=== PATIENT | female | born 1960 | race Asian ===

== ENCOUNTER 2018-06-02 02:40 | Emergency (ER) | payer OTHER ==
[~2018-06-02] VITALS: Ht 154.9 cm; Wt 56.2 kg
[2018-06-02 02:42] VITALS: Ht 154.9 cm; Wt 56.2 kg
[2018-06-02 04:08] LABS: BASOPHIL % 0.6 % (0-2); CALCIUM 9.2 mg/dL (8.5-10.1); CARBON DIOXIDE 26.3 mmol/L (21-32); CHLORIDE SERUM 106 mmol/L (98-107); CREATININE SERUM 0.7 mg/dL (0.6-1.0); GFR1 > 60 mL/min; GLUCOSE SERUM 99 mg/dL (74-106); PLATELET COUNT 128 x10^3mcL (130-400); POTASSIUM SERUM 3.4 mmol/L (3.5-5.1); RED CELL DISTRIBUTION WIDTH 13.8 % (11.5-14.5); SODIUM SERUM 140 mmol/L (136-145)
[2018-06-02 04:13] LABS: ALBUMIN 3.7 g/dL (3.4-5.0); ALKALINE PHOSPHATASE 98 U/L (46-116); ALT/SGPT 42 U/L (14-59); AST/SGOT 29 U/L (15-37); BILIRUBIN TOTAL 0.31 mg/dL (0.20-1.00); TOTAL PROTEIN, SERUM 7.5 g/dL (6.4-8.2)
[2018-06-02 08:46] VITALS: BP 154/64
== END 2018-06-02 08:50 | disposition home or self-care (01) ==
LOC: ED 02:40
PROVIDERS: Emergency Medicine
DX: H81.10 Benign paroxysmal vertigo, unspecified ear (principal); Z88.1 Allergy status to other antibiotic agents
CPT/HCPCS: 36415; J8597; Q0162